=== PATIENT | female | born 1975 | race Caucasian/White ===

== ENCOUNTER 2018-10-13 14:30 | Emergency (ER) | payer BC ==
--- NOTE | 2018-10-13 15:01 | ED Physician Documentation ---
General Adult - HISTORIAN Historian: patient - HPI Stated Complaint: right sided abdominal pain x 3 days Chief Complaint: Abdominal Pain Onset: days ago (3) Timing: still present Severity: mild Further Comments: yes (she reports she did swallow two rings and a few earrings while in a psychatric facility. 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 Pain is burning 5/10 and sharp intermitently (/) She has had normal bowel movements and no nausea currently. No fever. She denies any injury) - ROS CONST: no problems GI/: abdominal pain, vomiting. denies: diarrhea, black stools MS/SKIN/LYMPH: denies: rash NEURO/PSYCH: denies: headache - PAST HX Past History: none Surgeries/Procedures: none Immunizations: UTD Allergies/Adverse Reactions: Allergies Allergy/AdvReac Type Severity Reaction Status Date / Time No Known Allergies Allergy Verified 10/13/18 15:20 Home Medications: Ambulatory Orders Medication Instructions Recorded Albuterol Sulfate [Proair HFA] 1 inh IH TID 10/13/18 - SOCIAL HX Smoking History: non-smoker Alcohol Use: none Drug Use: none - FAMILY HX Family History: No - REVIEWED ASSESSMENTS Nursing Assessment Reviewed: Yes Vitals Reviewed: Yes ED Results Lab/Radiology - Radiology Radiology Impressions: 3 views abdomen single view chest Clinical history: Right lower quadrant pain Findings: The lungs are clear. No pneumoperitoneum. There is moderate retained fecal material in the right abdomen. No radiopaque foreign bodies identified. There is a no gas filled loops of small bowel. Impression: Negative Electronically signed on Oct 13, 2018 4:05:12 PM CDT by: Winston Reese General Adult Physical Exam - PHYSICAL EXAM GENERAL APPEARANCE: no distress EENT: eye inspection normal, no signs of dehydration NECK: normal inspection RESPIRATORY: no resp distress, chest non-tender, breath sounds normal CVS: reg rate & rhythm, heart sounds normal, equal pulses ABDOMEN: soft, normal bowel sounds, no distension, non-tender BACK: normal inspection, no CVA tenderness SKIN: warm/dry, normal color EXTREMITIES: non-tender, normal range of motion, no evidence of injury, no edema NEURO: oriented X3 Discharge Clincal Impression: Abdominal pain Qualifiers: Abdominal location: right upper quadrant Qualified Code(s): R10.11 - Right upper quadrant pain Referrals: Primary Doctor,No [Primary Care Provider] - 2 Days Comments: 1. Half bottle of magnesium citrate and if no bowel movement in 2 hours repeat other half 2. Increase fluids 3. Increase fiber 4. Follow up with PCP In 2-4 days 5. Return to ER for any increasing concerns Condition: Stable Disposition: 01 HOME, SELF-CARE Decision to Admit: NO Date of Decison to Admit: 10/13/18 Decision Time: 16:09
[2018-10-13 15:22] VITALS: BP 123/72
--- NOTE | 2018-10-13 16:12 | Diagnostic Imaging Report ---
RICHARD GAN [facility] [id number] [facility] [address] [place], [place]. [address] Report Submission Date: Oct 13, 2018 4:05:12 PM CDT Patient Study Name: AHSAN MOSS Date: Oct 13, 2018 3:22:49 PM CDT Modality Type: DX Gender: F Description: ABD SERIES PA CHEST : 71 Institution: [facility] Physician: RICHARD GAN 3 views abdomen single view chest Clinical history: Right lower quadrant pain Findings: The lungs are clear. No pneumoperitoneum. There is moderate retained fecal material in the right abdomen. No radiopaque foreign bodies identified. There is a no gas filled loops of small bowel. Impression: Negative Electronically signed on Oct 13, 2018 4:05:12 PM CDT by: Winston MALLORY
[2018-10-13 17:43] LABS: APPEARANCE,URINE CLEAR (CLEAR); COLOR,URINE YELLOW (YELLOW); OCCULT BLOOD,URINE NEGATIVE (NEGATIVE); URINE HCG NEGATIVE (NEGATIVE)
== END 2018-10-13 16:15 | disposition home or self-care (01) ==
LOC: ED 14:30
DX: R10.11 Right upper quadrant pain (principal)
CPT/HCPCS: 74022; 81002; 81025; 99283